=== PATIENT | female | born 1990 | race Asian ===

== ENCOUNTER 2020-09-25 17:58 | Emergency (ER) | payer OTHER ==
[~2020-09-25] VITALS: Ht 160 cm; Wt 55.6 kg
[2020-09-25 19:31] LABS: BASOPHILS % (AUTO) 1 % (0-1); EOSINOPHILS % (AUTO) 2 % (1-7); LYMPHOCYTES % (AUTO) 37 % (22-44); MEAN CORPUSCULAR HEMOGLOBIN 32.4 pg (27.0-34.8); MEAN CORPUSCULAR HGB CONC 34.6 g/dL (32.4-35.8); MEAN PLATELET VOLUME 6.8 fL (7.4-10.4); MONOCYTES % (AUTO) 6 % (2-9); NEUTROPHILS % (AUTO) 54 % (42-75); PLATELET COUNT 529 x10^3/uL (130-400); RED BLOOD COUNT 4.57 x10^6/uL (3.82-5.3); RED CELL DISTRIBUTION WIDTH 11.8 % (9.6-15.2)
[2020-09-25 19:38] LABS: MD NO
[2020-09-25 19:41] LABS: ALANINE AMINOTRANSFERASE 22 U/L (12-78); ANION GAP 5 mmol/L (5-15); CALCIUM 9.3 mg/dL (8.5-10.1); CHLORIDE 105 mmol/L (98-107); CREATININE 0.62 mg/dL (0.55-1.02)
[2020-09-25 19:45] LABS: ALKALINE PHOSPHATASE 68 U/L (45-117); BILIRUBIN,TOTAL 0.6 mg/dL (0.2-1.0); TOTAL PROTEIN 8.1 g/dL (6.4-8.2)
[2020-09-25] MEDS ORDERED: ACETAMINOPHEN 500 MG TABLET ONE (19:51)
[2020-09-25] MEDS ORDERED: KETOROLAC 30 MG/1 ML ONE (19:51)
[2020-09-25] MEDS ORDERED: KETOROLAC 30 MG/1 ML IM ONE (20:00)
[2020-09-25] MEDS ORDERED: ACETAMINOPHEN 500 MG TABLET PO ONE (20:00)
--- NOTE | 2020-09-25 20:00 | NUR ---
pt VSS, denies any needs at this time. at bedside
[2020-09-25 20:33] LABS: MICROSCOPIC NOT IND
--- NOTE | 2020-09-25 20:40 | NUR ---
REPORT FROM RICHARD CHACON.
[2020-09-25 21:25] VITALS: BP 107/73
== END 2020-09-25 21:34 | disposition home or self-care (01) ==
LOC: ED 21:28
DX: R10.31 Right lower quadrant pain (principal); G89.29 Other chronic pain; M54.41 Lumbago with sciatica, right side
CPT/HCPCS: 36415; 76830; 80053; 81003; 83690; 84703; 85025; 96372; 99284; J1885

== ENCOUNTER 2020-10-04 19:11 | Emergency (ER) | payer OTHER ==
[~2020-10-04] VITALS: Ht 160 cm; Wt 56.4 kg
--- NOTE | 2020-10-04 20:05 | NUR ---
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 Steady upon ambulation.
--- NOTE | 2020-10-04 20:22 | NUR ---
Rlq pain described as pressure x 7 days. worse with eating Last bm this AM No abd surgical history
[2020-10-04 20:28] LABS: MICROSCOPIC NOT IND
[2020-10-04 21:00] LABS: BASOPHILS % (AUTO) 1 % (0-1); EOSINOPHILS % (AUTO) 4 % (1-7); LYMPHOCYTES % (AUTO) 34 % (22-44); MEAN CORPUSCULAR HGB CONC 34.2 g/dL (32.4-35.8); MEAN PLATELET VOLUME 7.2 fL (7.4-10.4); MONOCYTES % (AUTO) 8 % (2-9); NEUTROPHILS % (AUTO) 54 % (42-75); PLATELET COUNT 456 x10^3/uL (130-400); RED BLOOD COUNT 3.95 x10^6/uL (3.82-5.3); RED CELL DISTRIBUTION WIDTH 11.9 % (9.6-15.2)
[2020-10-04 21:02] LABS: ALBUMIN 3.9 g/dL (3.4-5.0); ANION GAP 5 mmol/L (5-15); CALCIUM 8.8 mg/dL (8.5-10.1); CHLORIDE 106 mmol/L (98-107)
--- NOTE | 2020-10-04 21:04 | NUR ---
CT PENDING LAB/BETA RESULT.
[2020-10-04] MEDS ORDERED: MORPHINE SULFATE 4 MG/ML, 1ML IVPush PRN (21:30)
[2020-10-04] MEDS ORDERED: ONDANSETRON 2MG/ML, 2ML IVPush ONE (21:30)
[2020-10-04] MEDS ORDERED: OMNIPAQUE 350 MG/ML, 100ML BOTTLE ONE (21:46)
[2020-10-04 22:51] VITALS: BP 130/79
== END 2020-10-04 22:53 | disposition home or self-care (01) ==
LOC: ED 21:03
DX: R10.31 Right lower quadrant pain (principal); R19.7 Diarrhea, unspecified; R30.0 Dysuria; R11.0 Nausea
CPT/HCPCS: 36415; 74177; 80048; 81003; 82040; 84703; 85025; 99285; Q9967